=== PATIENT | male | born 1990 | race Caucasian/White ===

== ENCOUNTER 2019-04-24 10:39 | Inpatient (IN) ==
[2019-04-24 11:46] LABS: Basophils % 0.1 %; Eosinophils % 0.2 %; Hematocrit 45.2 % (37.5-50.1); Hemoglobin 15.1 g/dL (12.9-16.9); Immature Granulocytes % 0.2 % (0-4); Lymphocytes # 1.7 K/mcL (0.6-4.6); Lymphocytes % 18.5 %; Mean Corpuscular HGB Conc 33.4 g/dL (31.6-35.5); Mean Corpuscular Hemoglobin 28.7 pg (28.0-33.3); Mean Corpuscular Volume 85.9 fL (83.0-100.0); Mean Platelet Volume 9.5 fL (9.4-12.4); Monocytes # 0.5 K/mcL (0.0-1.3); Platelet Count 250 K/mcL (140-400); Red Blood Count 5.26 M/mcL (4.19-5.50); Red Cell Distribution Width 13.3 % (11.5-14.5); White Blood Count 9.2 K/mcL (4.3-11.1)
[2019-04-24 11:56] LABS: Estimated Average Glucose 108 mg/dl
[2019-04-24 12:01] LABS: Bilirubin,Urine Small (Negative); Blood,Urine Negative (Negative); Clarity,Urine Clear (Clear); Color,Urine Dark Yellow (Yellow); Glucose,Urine (UA) Normal (Normal); Ketones,Urine Negative (Negative); Leukocyte Esterase,Urine Negative (Negative); Nitrite,Urine Negative (Negative); Protein,Urine Trace mg/dL (Neg-Trace); Specific Gravity,Urine > 1.030 (1.010-1.025); Urobilinogen,Urine Normal (Normal)
[2019-04-24 12:09] LABS: Amphetamine Screen,Urine Negative ng/mL (Cutoff=1000); Barbiturate Screen,Urine Negative ng/mL (Cutoff=200); Benzodiazepines Screen,Urine Negative ng/mL (Cutoff=200); Cannabinoid Screen,Urine Negative ng/mL (Cutoff = 50); Cocaine Screen,Urine Negative ng/mL (Cutoff= 300); Opiate Screen,Urine Negative ng/mL (Cutoff=300); Phencyclidine Screen,Urine Negative ng/mL (Cutoff=25)
[2019-04-24 12:15] LABS: Acetaminophen < 10 mcg/mL (10-20); BUN/Creatinine Ratio 21 (6-26); Blood Urea Nitrogen 18 mg/dL (6-20); Calcium 9.6 mg/dL (8.6-10.3); Carbon Dioxide 24 mEq/L (23-29); Chloride 102 mEq/L (98-107); Chol/HDL Ratio 6.1 (0-4.9); Cholesterol 196 mg/dL (< 200); Ethanol < 10 mg/dL (Less than 10); Glucose 126 mg/dL (70-105); HDL Cholesterol 32 mg/dL (40-59); LDL Cholesterol,Calculated 143 mg/dL (0-99); Osmolality,Calculated 291 (280-300); Potassium 3.7 mEq/L (3.5-5.1); Salicylate < 2.5 mg/dL (15.0-30.0); Sodium 139 mEq/L (136-145); Triglycerides 103 mg/dL (< 150); eGFR For African Americans > 60 (> 60); eGFR For Non-African Americans > 60 (> 60)
[2019-04-24 12:18] LABS: Thyroid Stimulating Hormone 9.973 mcIU/mL (0.340-5.600)
[2019-04-24] MEDS ORDERED: Haloperidol Lactate 5 MG/ML VIAL IM PRN (13:58)
[2019-04-24] MEDS ORDERED: *HR* LORazepam 1 MG TABLET PO PRN (13:58)
[2019-04-24] MEDS ORDERED: *HR* LORazepam 2 MG/ML VIAL IM PRN (13:58)
[2019-04-24] MEDS ORDERED: Mag Hydrox/Al Hydrox/Simeth 30 ML UDC PO PRN (13:58)
[2019-04-24] MEDS ORDERED: MOM Conc 10 ML UD.LIQ PO PRN (13:58)
[2019-04-24] MEDS ORDERED: Acetaminophen 325 MG TABLET PO PRN (13:58)
[2019-04-24] MEDS: traZODone 50 MG TABLET PO PRN (22:12)
[2019-04-24] MEDS: hydrOXYzine pamoate 25 MG CAPSULE PO PRN (22:12)
[2019-04-25] MEDS: BuPROPion XL (24 HR) 150 MG TABLET PO SCH (14:09)
[2019-04-25] MEDS: hydrOXYzine pamoate 25 MG CAPSULE PO PRN (20:21)
[2019-04-25] MEDS: traZODone 50 MG TABLET PO PRN (20:21)
[2019-04-26] MEDS: BuPROPion XL (24 HR) 150 MG TABLET PO SCH (08:13)
[2019-04-26 08:14] VITALS: BP 138/89
== END 2019-04-26 12:33 | disposition home or self-care (01) | DRG 751 ==
LOC: EMEROOARM 10:39 → 1ANU 13:50
PROVIDERS: ADMIT Psychiatry & Neurology Psychiatry; ATTEND Psychiatry & Neurology Psychiatry